=== PATIENT | female | born 1940 | race Caucasian/White ===

== ENCOUNTER 2016-03-29 10:00 | Emergency (ER) | payer MEDICARE ==
[~2016-03-29] VITALS: Ht 165.1 cm; Wt 83.4 kg
[~2016-03-29 10:00] MED LIST: ASPI81 PO; CAPT12.52 PO; GABA400C5 PO; HYDR10TA16 PO; TAB-TAB PO; WALKER STANDARD; ZOCO10TA PO
[2016-03-29 10:11] VITALS: BP 128/72; PULSE 13; PULSE 73; RESP 18; TEMP 97.7; O2SAT 97
[2016-03-29] MEDS ORDERED: CALC1TAB87 PO (10:29)
[2016-03-29] MEDS ORDERED: ASPI1TAB69 PO (10:29)
[2016-03-29] MEDS ORDERED: CAPT25TA2 PO (10:29)
[2016-03-29] MEDS ORDERED: HYDR-3366 PO (10:29)
[2016-03-29] MEDS ORDERED: GABA400C5 PO (10:29)
[2016-03-29] MEDS ORDERED: SIMV10TA PO (10:29)
[2016-03-29] MEDS ORDERED: MULT-65 PO (10:29)
[2016-03-29] MEDS ORDERED: RESP: ALBUTEROL 2.5 MG/IPRATROPIUM 0.5 MG NEB (SCH) NEB ONE (10:30)
[2016-03-29] MEDS ORDERED: SODIUM CHLORIDE 0.9% FLUSH 5 ML FLUSH IVF PRN (10:30)
--- NOTE | 2016-03-29 10:34 | PD ---
HPI Chief Complaint: Cold / Flu Symptoms Time Seen by Provider: 10:18 Travel History International Travel<30 days: No Contact w/Intl Traveler<30days: No Traveled to known affect area: No History of Present Illness HPI Patient is a 75-year-old female who presents to emergency room with complaints of not feeling well with the URI for the past few days. Reports that for the past 2 days, she has had low-grade fevers, reports that she has had a nonproductive cough and increased congestion. Reports that she feels as if she is wheezing. She reports no sick contacts or recent travels or trips. Reports that she gets sick like this every year, reports concerns that she gets pneumonia very easily and is concerned that she may have pneumonia. Patient reports that she did have her influenza vaccine this year. Patient reports myalgias along with her symptoms. Patient denies chest pain or shortness of breath at this time. Patient with no other complaints. 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) Social History Alcohol Use: No Tobacco Use: No Substance Use: No Allergies-Medications (Allergen,Severity, Reaction): Coded Allergies: Adhesives (Verified Allergy, Intermediate, BLISTER, 03/29/16) Pentothal (Verified Adverse Reaction, Intermediate, POST OP DEPRESSION, 03/29/16) Uncoded Allergies: PAPER TAPE (Allergy, Severe, BLISTERING, 09/19/09) Reported Meds & Prescriptions Reported Meds & Active Scripts Active Reported Aspirin 81 Mg Tabdr 81 Mg PO DAILY Calcium 600 with Vitamin D (Calcium Carbonate-Cholecalciferol) 600-400 mg-Unit Tab 1 Tab PO DAILY Multi-Vitamin Daily (Multiple Vitamin) 1 Tab Tab 1 Tab PO DAILY Gabapentin 400 Mg Cap 400 Cap PO QID [place] (Hydrocodone-Acetaminophen) 10-325 Mg Tab 1 Tab PO Q6H PRN Captopril 25 Mg Tab 25 Mg PO TIDAC Take 1 hr before meals. Simvastatin 10 Mg Tab 10 Mg PO DAILY Review of Systems General / Constitutional: Positive: Fever (subjective fevers) Eyes: No: Visual changes HENT: Positive: Rhinorrhea, Congestion, No: Headaches, Vertigo, Lightheadedness, Sore Throat, Neck Pain Cardiovascular: No: Chest Pain or Discomfort Respiratory: Positive: Cough, Wheezing, No: Shortness of Breath Gastrointestinal: No: Nausea, Vomiting, Abdominal Pain Genitourinary: No: Dysuria Musculoskeletal: No: Pain Skin: No Rash Neurologic: No: Weakness Psychiatric: No: Depression Endocrine: No: Polydipsia Hematologic/Lymphatic: No: Easy Bruising Physical Exam Narrative GENERAL: No acute distress, nontoxic SKIN: Warm and dry. HEAD: Atraumatic. Normocephalic. EYES:. No injection or drainage. ENT: No nasal bleeding or discharge. Mucous membranes pink and moist. NECK: Trachea midline. No JVD. CARDIOVASCULAR: Regular rate and rhythm. No murmur appreciated. RESPIRATORY: No accessory muscle use. Clear to auscultation. Breath sounds equal bilaterally. GASTROINTESTINAL: Abdomen soft, non-tender, nondistended. Hepatic and splenic margins not palpable. MUSCULOSKELETAL: No obvious deformities. No clubbing. No cyanosis. No edema. NEUROLOGICAL: Awake and alert. No obvious cranial nerve deficits. Motor grossly within normal limits. Normal speech. PSYCHIATRIC: Appropriate mood and affect; insight and judgment normal. Data Data Last Documented VS Vital Signs Date Time Temp Pulse Resp B/P Pulse Ox O2 Delivery O2 Flow Rate FiO2 03/29/16 10:15 16 97 Room Air 03/29/16 10:11 97.7 73 128/72 Orders Complete Blood Count With Diff (03/29/16 10:26) Comprehensive Metabolic Panel (03/29/16 10:26) Influenzae A/B Antigen (03/29/16 10:26) Chest, Pa & Lat (03/29/16 10:26) Iv Access Insert/Monitor (03/29/16 10:26) Sodium Chloride 0.9% Flush (Ns Flush) (03/29/16 10:30) Albuterol-Ipratropium Neb (Duoneb Neb) (03/29/16 10:30) Potassium Cl 40 Meq/30 Ml Liq (Kcl 40 Me (03/29/16 11:15) Labs Laboratory Tests Test 03/29/16 10:30 White Blood Count 5.9 TH/MM3 Red Blood Count 4.21 MIL/MM3 Hemoglobin 12.6 GM/DL Hematocrit 37.6 % Mean Corpuscular Volume 89.4 FL Mean Corpuscular Hemoglobin 30.0 PG Mean Corpuscular Hemoglobin 33.6 % Concent Red Cell Distribution Width 13.9 % Platelet Count 196 TH/MM3 Mean Platelet Volume 8.3 FL Neutrophils (%) (Auto) 75.3 % Lymphocytes (%) (Auto) 11.9 % Monocytes (%) (Auto) 11.6 % Eosinophils (%) (Auto) 0.7 % Basophils (%) (Auto) 0.5 % Neutrophils # (Auto) 4.5 TH/MM3 Lymphocytes # (Auto) 0.7 TH/MM3 Monocytes # (Auto) 0.7 TH/MM3 Eosinophils # (Auto) 0.0 TH/MM3 Basophils # (Auto) 0.0 TH/MM3 CBC Comment DIFF FINAL Differential Comment Sodium Level 144 MEQ/L Potassium Level 3.3 MEQ/L Chloride Level 106 MEQ/L Carbon Dioxide Level 27.7 MEQ/L Anion Gap 10 MEQ/L Blood Urea Nitrogen 15 MG/DL Creatinine 0.77 MG/DL Estimat Glomerular Filtration 73 ML/MIN Rate Random Glucose 137 MG/DL Calcium Level 8.4 MG/DL Total Bilirubin 0.6 MG/DL Aspartate Amino Transf 23 U/L (AST/SGOT) Alanine Aminotransferase 19 U/L (ALT/SGPT) Alkaline Phosphatase 53 U/L Total Protein 6.8 GM/DL Albumin 3.4 GM/DL MDM Medical Decision Making Medical Screen Exam Complete: Yes Emergency Medical Condition: Yes Interpretation(s) Vital Signs Date Time Temp Pulse Resp B/P Pulse Ox O2 Delivery O2 Flow Rate FiO2 03/29/16 10:15 16 97 Room Air 03/29/16 10:11 97.7 73 18 128/72 97 Differential Diagnosis Pneumonia, influenza, viral syndrome, sinusitis, acute bronchitis Narrative Course Patient is a 75-year-old female who presents to emergency room with complaints of not feeling well for the past few days. Reports increased congestion with nonproductive cough with low-grade fevers and chills. Patient overall nontoxic on evaluation Vital Signs Date Time Temp Pulse Resp B/P Pulse Ox O2 Delivery O2 Flow Rate FiO2 03/29/16 10:15 16 97 Room Air 03/29/16 10:11 97.7 73 18 128/72 97 Vital signs stable at this time X-ray of chest ordered to evaluate for possible pneumonia. Will order flu swab as well. Will treat patient symptomatically at this time. CBC & BMP Diagram 03/29/16 10:30 Microbiology Date/Time Procedure Status Source Growth 03/29/16 10:35 Influenza Types A,B Antigen (MICHELLE) - Final Complete Nasal Aspirate NEGATIVE FOR FLU A AND B ANTIGEN.... All labs and all studies reviewed with patient in detail. Patient with acute bronchitis, discussed need for treatment with antibiotics. Will have patient follow up with his primary care doctor and return to ER as needed. Diagnosis Primary Impression: Bronchitis Patient Instructions: General Instructions Additional Instructions: Please follow-up with your primary care doctor in 2-3 days Return to the emergency room if symptoms progress or worsen Please complete full course of antibiotics Med/Other Pt SpecificInfo: Prescription(s) given Scripts Albuterol 8.5 GM Inh (Proair Hfa 8.5 GM Inh)90 Mcg/Act Aer2 Puff INH Q4-6H PRN ( SHORTNESS OF BREATH) #1 INHALER Ref 0 108 mcg/actuation Prov:Kimberly Viveros DO 03/29/16 Azithromycin 500 Mg [id number] Mg PO DAILY #5 TAB Ref 0 Prov:Kimberly Viveros DO 03/29/16 Disposition: 01 DISCHARGE HOME Condition: Stable Kimberly Viveros DO Mar 29, 2016 10:34
[2016-03-29 10:46] LABS: AUTOMATED NEUTROPHIL # 4.5 TH/MM3 (1.8-7.7); BASOPHIL % 0.5 % (0.0-2.0); EOSINOPHIL % 0.7 % (0.0-4.0); HEMATOCRIT 37.6 % (35.0-46.0); LYMPH % 11.9 % (9.0-44.0); LYMPHOCYTE # 0.7 TH/MM3 (1.0-4.8); MEAN CELL VOLUME 89.4 FL (80.0-100.0); MEAN CORPUSCULAR HGB CONC 33.6 % (32.0-36.0); MONO % 11.6 % (0.0-8.0); NEUT % 75.3 % (16.0-70.0); PLATELET COUNT 196 TH/MM3 (150-450); RED BLOOD COUNT 4.21 MIL/MM3 (4.00-5.30); RED CELL DISTRIBUTION WIDTH 13.9 % (11.6-17.2); WHITE BLOOD COUNT 5.9 TH/MM3 (4.0-11.0)
[2016-03-29 10:50] LABS: HEMO FLAGS DIFF FINAL
[2016-03-29 10:54] LABS: CHLORIDE 106 MEQ/L (98-107); POTASSIUM 3.3 MEQ/L (3.5-5.1); SODIUM (NA) 144 MEQ/L (136-145)
[2016-03-29 10:57] LABS: ANION GAP 10 MEQ/L (5-15); BICARBONATE 27.7 MEQ/L (21.0-32.0); BLOOD UREA NITROGEN 15 MG/DL (7-18)
[2016-03-29 11:00] LABS: ALT (GPT) 19 U/L (10-53); AST (GOT) 23 U/L (15-37); GLOMERULAR FILTRATION RATE 73 ML/MIN (>89)
[2016-03-29 11:02] LABS: TOTAL BILIRUBIN ADULT 0.6 MG/DL (0.2-1.0)
[2016-03-29 11:03] LABS: ALKALINE PHOSPHATASE 53 U/L (45-117)
[2016-03-29] MEDS ORDERED: POTASSIUM CL 40 MEQ/30 ML LIQ UDC PO ONE (11:15)
--- NOTE | 2016-03-29 11:44 | RADHPO ---
EXAM DATE/TIME: 03/29/2016 10:56 [facility] COMPARISON: No previous studies available for comparison. INDICATIONS : Cough & congestion. MEDICAL HISTORY : Hypertension. Hiatal hernia. Arthritis. GERD. Melanoma. SURGICAL HISTORY : Cholecystectomy. Tonsillectomy. Hysterectomy. Appendectomy. ENCOUNTER: Initial ACUITY: 2 days PAIN SCORE: 0/10 LOCATION: Chest FINDINGS: There is compensated cardiomegaly without overt congestive failure. There is no parenchymal infiltra te, alveolar consolidation or pneumothorax. Portion of the bony skeleton visualized is unremarkable. CONCLUSION: Compensated cardiomegaly, otherwise negative. Jorge Novoa MD FACR on March 29, 2016 at 11:17 Board Certified Radiologist. This report was verified electronically.
[2016-03-29] MEDS ORDERED: ALBUAER3 INH (12:05)
[2016-03-29] MEDS ORDERED: AZIT500T2 PO (12:05)
[2016-03-29] MEDS ORDERED: AZITHROMYCIN 250 MG TAB PO ONE (12:15)
[2016-03-29 12:30] VITALS: BP 165/79
== END 2016-03-29 12:41 | disposition home or self-care (01) ==
LOC: PHED 10:00
DX: J40 Bronchitis, not specified as acute or chronic (principal); R05 Cough; R06.2 Wheezing; I10 Essential (primary) hypertension; E78.00 Pure hypercholesterolemia, unspecified; Z79.01 Long term (current) use of anticoagulants
CPT/HCPCS: 71020; 80053; 85025; 87804; 94664; 99283

== ENCOUNTER 2016-03-31 12:47 | Emergency (ER) | payer MEDICARE ==
[~2016-03-31] VITALS: Ht 165.1 cm; Wt 83.0 kg
[~2016-03-31 12:47] MED LIST changes: +ALBUAER3 INH; +ASPI1TAB69 PO; -ASPI81 PO; +AZIT500T2 PO; +CALC1TAB87 PO; -CAPT12.52 PO; +CAPT25TA2 PO; +HYDR-3366 PO; -HYDR10TA16 PO; +MULT-65 PO; +SIMV10TA PO; -TAB-TAB PO; -WALKER STANDARD; -ZOCO10TA PO
[2016-03-31 12:55] VITALS: BP 197/91; PULSE 78; RESP 18; TEMP 97.9; O2SAT 99
[2016-03-31 13:23] VITALS: BP 179/81; PULSE 74; RESP 16; O2SAT 99
[2016-03-31] MEDS ORDERED: LOPERAMIDE HCL 2 MG CAP PO ONE (13:45)
[2016-03-31] MEDS ORDERED: SODIUM CHLOR 0.9% 1000 ML INJ 1,000 ML IV ONE (13:45)
--- NOTE | 2016-03-31 13:52 | PD ---
HPI Chief Complaint: General Weakness Time Seen by Provider: 13:01 Travel History International Travel<30 days: No Contact w/Intl Traveler<30days: No Traveled to known affect area: No History of Present Illness HPI This 75 year-old woman presents to the emergency department complaining that she feeling worse after being diagnosed with bronchitis. She had a negative chest x-ray negative for couple days ago. She's been sick for 5 or 6 days. Her was just admitted with respiratory distress and influenza A. She states she initially was feeling okay when she went home she had more shortness of breath wheezing cough and then developed diarrhea. She feels very weak and feels like she needs to be admitted to the hospital. History Past Medical History Narrative Medical Hypertension hyperlipidemia Neuropathy Influenza Vaccination: Yes Dilation and Curettage (D&C): Yes (X 3) Social History Alcohol Use: No Tobacco Use: No Allergies-Medications (Allergen,Severity, Reaction): Coded Allergies: Adhesives (Verified Allergy, Intermediate, BLISTER, 03/31/16) Pentothal (Verified Adverse Reaction, Intermediate, POST OP DEPRESSION, 03/31/16) Uncoded Allergies: PAPER TAPE (Allergy, Severe, BLISTERING, 09/19/09) Reported Meds & Prescriptions Reported Meds & Active Scripts Active Proair Hfa 8.5 GM Inh (Albuterol Sulfate) 90 Mcg/Act Aer 2 Puff INH Q4-6H PRN 108 mcg/actuation Azithromycin 500 Mg Tab 500 Mg PO DAILY Reported Aspirin 81 Mg Tabdr 81 Mg PO DAILY Calcium 600 with Vitamin D (Calcium Carbonate-Cholecalciferol) 600-400 mg-Unit Tab 1 Tab PO DAILY Multi-Vitamin Daily (Multiple Vitamin) 1 Tab Tab 1 Tab PO DAILY Gabapentin 400 Mg Cap 400 Cap PO QID [place] (Hydrocodone-Acetaminophen) 10-325 Mg Tab 1 Tab PO Q6H PRN Captopril 25 Mg Tab 25 Mg PO TIDAC Take 1 hr before meals. Simvastatin 10 Mg Tab 10 Mg PO DAILY Review of Systems Except as stated in HPI: all other systems reviewed are Neg Physical Exam Narrative GENERAL: Anxious appearing 75 year-old woman, no acute distress SKIN: Warm and dry. NECK: Trachea midline. No JVD. CARDIOVASCULAR: Regular rate and rhythm. No murmur appreciated. RESPIRATORY: Little bit anxiety with some rapid breathing. No wheezing. No rhonchi. GASTROINTESTINAL: Abdomen soft, non-tender, nondistended. Hepatic and splenic margins not palpable. MUSCULOSKELETAL: No obvious deformities. No edema. NEUROLOGICAL: Awake and alert. No obvious cranial nerve deficits. Motor grossly within normal limits. Normal speech. Data Data Last Documented VS Vital Signs Date Time Temp Pulse Resp B/P Pulse Ox O2 Delivery O2 Flow Rate FiO2 03/31/16 13:23 74 16 179/81 99 Room Air 03/31/16 12:55 97.9 Orders Complete Blood Count With Diff (03/31/16 13:29) Comprehensive Metabolic Panel (03/31/16 13:29) Chest, Pa & Lat (03/31/16 ) Influenzae A/B Antigen (03/31/16 13:41) Sodium Chlor 0.9% 1000 Ml Inj (Ns 1000 M (03/31/16 13:45) Loperamide (Imodium) (03/31/16 13:45) Labs Laboratory Tests Test 03/31/16 13:38 White Blood Count 5.8 TH/MM3 Red Blood Count 4.52 MIL/MM3 Hemoglobin 13.3 GM/DL Hematocrit 39.7 % Mean Corpuscular Volume 87.9 FL Mean Corpuscular Hemoglobin 29.5 PG Mean Corpuscular Hemoglobin 33.6 % Concent Red Cell Distribution Width 14.1 % Platelet Count 231 TH/MM3 Mean Platelet Volume 8.6 FL Neutrophils (%) (Auto) 65.6 % Lymphocytes (%) (Auto) 23.0 % Monocytes (%) (Auto) 10.6 % Eosinophils (%) (Auto) 0.4 % Basophils (%) (Auto) 0.4 % Neutrophils # (Auto) 3.8 TH/MM3 Lymphocytes # (Auto) 1.3 TH/MM3 Monocytes # (Auto) 0.6 TH/MM3 Eosinophils # (Auto) 0.0 TH/MM3 Basophils # (Auto) 0.0 TH/MM3 CBC Comment DIFF FINAL Differential Comment Sodium Level 141 MEQ/L Potassium Level 3.8 MEQ/L Chloride Level 106 MEQ/L Carbon Dioxide Level 25.0 MEQ/L Anion Gap 10 MEQ/L Blood Urea Nitrogen 12 MG/DL Creatinine 0.78 MG/DL Estimat Glomerular Filtration 72 ML/MIN Rate Random Glucose 104 MG/DL Calcium Level 9.3 MG/DL Total Bilirubin 0.7 MG/DL Aspartate Amino Transf 17 U/L (AST/SGOT) Alanine Aminotransferase 23 U/L (ALT/SGPT) Alkaline Phosphatase 57 U/L Total Protein 7.4 GM/DL Albumin 3.9 GM/DL [facility] Medical Decision Making Medical Screen Exam Complete: Yes Emergency Medical Condition: Yes Interpretation(s) LABS: CBC unremarkable CMP unremarkable Flu negative Chest x-ray negative Differential Diagnosis Influenza, bronchitis, pneumonia, dehydration, other Narrative Course Medical decision making INITIAL: This 75 year-old woman presents to the emergency department complaining of flulike symptoms, was just diagnosed with flu A, she is feeling worse with worsening weakness and wheezing and some diarrhea. She appears very anxious about being at home alone. She may need to be admitted to the hospital but not definitely so. We'll recheck x-ray labs influenza and give IV fluids and loperamide. Diagnosis Primary Impression: Bronchitis Additional Instructions: Follow-up with your primary doctor in the next 2-4 days. Return to the emergency department for any new or worsening symptoms. Disposition: 01 DISCHARGE HOME Condition: Stable Taz Queen MD Mar 31, 2016 13:51
[2016-03-31 13:57] LABS: AUTOMATED NEUTROPHIL # 3.8 TH/MM3 (1.8-7.7); BASOPHIL % 0.4 % (0.0-2.0); EOSINOPHIL % 0.4 % (0.0-4.0); HEMATOCRIT 39.7 % (35.0-46.0); HEMO FLAGS DIFF FINAL; LYMPHOCYTE # 1.3 TH/MM3 (1.0-4.8); MEAN CELL VOLUME 87.9 FL (80.0-100.0); MEAN CORPUSCULAR HEMOGLOBIN 29.5 PG (27.0-34.0); MEAN CORPUSCULAR HGB CONC 33.6 % (32.0-36.0); MONO % 10.6 % (0.0-8.0); NEUT % 65.6 % (16.0-70.0); PLATELET COUNT 231 TH/MM3 (150-450); RED BLOOD COUNT 4.52 MIL/MM3 (4.00-5.30); RED CELL DISTRIBUTION WIDTH 14.1 % (11.6-17.2); WHITE BLOOD COUNT 5.8 TH/MM3 (4.0-11.0)
[2016-03-31 14:10] LABS: ALT (GPT) 23 U/L (10-53); ANION GAP 10 MEQ/L (5-15); AST (GOT) 17 U/L (15-37); BLOOD UREA NITROGEN 12 MG/DL (7-18); CHLORIDE 106 MEQ/L (98-107); GLOMERULAR FILTRATION RATE 72 ML/MIN (>89); POTASSIUM 3.8 MEQ/L (3.5-5.1); SODIUM (NA) 141 MEQ/L (136-145)
[2016-03-31 14:13] LABS: ALKALINE PHOSPHATASE 57 U/L (45-117); TOTAL BILIRUBIN ADULT 0.7 MG/DL (0.2-1.0)
--- NOTE | 2016-03-31 14:14 | RADRPT ---
EXAM DATE/TIME: 03/31/2016 13:57 [facility] COMPARISON: CHEST PA & LAT, March 29, 2016, 10:56. INDICATIONS : Short of Breath, Cough, Wheezing. MEDICAL HISTORY : Hypertension. Hiatal hernia. Arthritis. GERD. Melanoma. SURGICAL HISTORY : Cholecystectomy. Tonsillectomy. Hysterectomy. Appendectomy. ENCOUNTER: Initial ACUITY: 4 - 6 days PAIN SCORE: 0/10 LOCATION: Bilateral chest FINDINGS: PA and lateral views of the chest demonstrate the lungs to be symmetrically aerated without evidence of mass, infiltrate or effusion. Cardiomegaly. The cardiomediastinal contours are unremarkable. Osse ous structures are intact. CONCLUSION: No acute disease. Siva Mayers MD on March 31, 2016 at 14:12 Board Certified Radiologist. This report was verified electronically.
== END 2016-03-31 17:00 | disposition home or self-care (01) ==
LOC: NEPC 12:47
DX: J40 Bronchitis, not specified as acute or chronic (principal); I10 Essential (primary) hypertension; E78.5 Hyperlipidemia, unspecified
CPT/HCPCS: 71020; 80053; 85025; 87804; 96360; 99285; J7030